=== PATIENT | female | born 1955 | race Caucasian/White ===

== ENCOUNTER 2021-08-14 11:43 | Outpatient (CLI) | payer MEDICARE, BC | END 2021-08-14 11:44 | disposition home or self-care (01) | LOC: CSHMAMMO 11:43 | PROVIDERS: ATTEND Obstetrics & Gynecology | DX: Z12.31 Encounter for screening mammogram for malignant neoplasm of breast (principal); Z80.3 Family history of malignant neoplasm of breast | CPT/HCPCS: 77063; 77067 ==

== ENCOUNTER 2022-04-10 10:55 | Outpatient (CLI) | payer MEDICARE, BC | END 2022-04-10 10:56 | disposition home or self-care (01) | LOC: CSHMAMMO 10:55 | PROVIDERS: ATTEND Nurse Practitioner Family | DX: Z13.820 Encounter for screening for osteoporosis (principal); M85.851 Other specified disorders of bone density and structure, right thigh; M85.852 Other specified disorders of bone density and structure, left thigh | CPT/HCPCS: 77080 ==

== ENCOUNTER 2024-04-14 13:48 | Outpatient (CLI) | payer MEDICARE, BC | END 2024-04-14 13:49 | disposition home or self-care (01) | LOC: CSHMAMMO 13:48 | PROVIDERS: ATTEND Obstetrics & Gynecology | DX: Z12.31 Encounter for screening mammogram for malignant neoplasm of breast (principal); Z78.0 Asymptomatic menopausal state; M85.851 Other specified disorders of bone density and structure, right thigh; M85.852 Other specified disorders of bone density and structure, left thigh; Z80.3 Family history of malignant neoplasm of breast | CPT/HCPCS: 77063; 77067; 77080 ==

== ENCOUNTER 2024-08-29 13:00 | Observation (INO) | payer MEDICARE, BC ==
[~2024-08-29 13:00] MED LIST: Iopamidol 370 76% 100 ML VIAL ONE
[2024-08-29 14:13] LABS: #Basophils 0.07 10x3/uL (0.0-0.2); #Eosinophils 0.13 10x3/uL (0.0-0.5); #Monocytes 0.78 10x3/uL (0.0-1.1); #Neutrophils 5.68 10x3/uL (1.5-8.4); %Basophils 0.7 % (0.0-2.0); %Eosinophils 1.4 % (0.0-6.0); %Lymphocytes 29.9 % (18.0-47.0); %Monocytes 8.2 % (0.0-10.0); %Neutrophils 59.6 % (40.0-75.0); Hematocrit 37.4 % (34.9-44.5); Hemoglobin 12.4 g/dL (12.0-15.5); Mean Corpuscular HGB CONC 33.2 g/dL (32.0-36.0); Mean Corpuscular Hemoglobin 27.3 pg (27.0-33.0); Mean Corpuscular Volume 82.2 fL (81.6-98.3); Mean Platelet Volume 10.3 fL (7.4-10.4); Platelet Count 326 10x3/uL (150-450); RBC Distribution Width 13.2 % (11.5-14.5); Red Blood Cell (RBC) Count 4.55 10x6/uL (3.90-5.03); White Blood Cell (WBC) Count 9.53 10x3/uL (3.5-10.5)
[2024-08-29 14:25] LABS: PTT 23.5 sec (22.0-33.0); Prothrombin Time 10.6 sec (9.5-12.1)
[2024-08-29 14:32] LABS: ALT (SGPT) 16 U/L (Less than 34); AST (SGOT) 23 U/L (11-34); Albumin 4.3 g/dL (3.1-4.5); Alkaline Phosphatase 76 U/L (40-110); Anion Gap 12 mmol/L (10-20); BUN (Urea Nitrogen) 15 mg/dL (9.8-20.1); Bilirubin, Total 0.9 mg/dL (0.3-1.2); Calc. Creatinine Clearance 0 mL/min (70-130); Calcium 9.2 mg/dL (7.8-10.44); Carbon Dioxide 26 mmol/L (23-31); Chloride 100 mmol/L (98-107); Estimated GFR 94; Globulin 2.5 g/dL (2.4-3.5); Glucose 101 mg/dL (83-110); Potassium 4.4 mmol/L (3.5-5.1); Protein, Total 6.8 g/dL (5.8-8.1); Sodium 134 mmol/L (136-145)
[2024-08-29 14:33] LABS: Troponin I Less than 0.010 ng/mL (< 0.028)
[2024-08-29] MEDS ORDERED: Aspirin Chewable 81 MG TAB ONE (15:23)
[2024-08-29 19:46] VITALS: BMI 21.5
[2024-08-29] MEDS: Atorvastatin Calcium 40 MG TAB PO SCH (21:14)
[2024-08-30 04:43] LABS: Cardiac Risk 2.3 (Less than 4.5)
[2024-08-30] MEDS: Aspirin 81 mg Enteric Coated Tablet PO SCH (09:14)
[2024-08-30 13:29] VITALS: BP 105/50; TEMP 97.8
== END 2024-08-30 13:32 | disposition home or self-care (01) ==
LOC: CSHERS 13:00 → CSHERHOLD 14:56 → CSHTELE 18:28
PROVIDERS: ADMIT Emergency Medicine; ATTEND Hospitalist
PROC: B24BZZ4 Ultrasonography of Heart with Aorta, Transesophageal (ICD-10-PCS; principal; 2024-08-29)
DX: R41.3 Other amnesia (principal); H53.47 Heteronymous bilateral field defects; Z88.1 Allergy status to other antibiotic agents; Z91.048 Other nonmedicinal substance allergy status; Z79.82 Long term (current) use of aspirin; Z79.899 Other long term (current) drug therapy; G45.9 Transient cerebral ischemic attack, unspecified; R47.01 Aphasia
CPT/HCPCS: 0042T; 70450; 70551; 71045; 80053; 80061; 82962; 83036; 84443; 84484; 85025; 85610; 85730; 93005; 93306; 99285; G0378 ×3; Q9967; 36415; 36416

== ENCOUNTER 2025-04-18 11:15 | Outpatient (CLI) | payer MEDICARE, BC | END 2025-04-18 11:16 | disposition home or self-care (01) | LOC: CSHMAMMO 11:15 | PROVIDERS: ATTEND Obstetrics & Gynecology | DX: Z12.31 Encounter for screening mammogram for malignant neoplasm of breast (principal); Z80.3 Family history of malignant neoplasm of breast; Z85.828 Personal history of other malignant neoplasm of skin | CPT/HCPCS: 77063; 77067 ==